=== PATIENT | male | born 1965 | race Caucasian/White ===

== ENCOUNTER 2023-03-03 10:50 | Inpatient (IN) | payer OTHER ==
[2023-03-03] VITALS (12 sets, daily range): BP systolic 117–140; BP diastolic 67–97; PULSE 64–71; RESP 18; TEMP 98.4
[~2023-03-03] VITALS: Ht 167.6 cm; Wt 86.1 kg
[~2023-03-03 10:50] MED LIST: ASPI-1450 PO; ASPIRIN 81 MG CHEWABLE TABLET PO ONE; ATOR40TA28 PO; CLOP75TA60 PO; DIAZEPAM 5 MG TABLET PO ONE; DiphenhydrAMINE HCL 50 MG CAPSULE PO ONE; ERGO500054 PO; LOSA-382 PO; RIFA300C36 PO; SODIUM CHLORIDE 0.9% 1,000 ML IV SCH; SODIUM CHLORIDE 0.9% 1,000 ML ONE
[2023-03-03] MEDS ORDERED: DIAZEPAM 5 MG TABLET ONE (11:50)
[2023-03-03] MEDS ORDERED: DiphenhydrAMINE HCL 50 MG CAPSULE ONE (11:50)
[2023-03-03 12:21] LABS: GLUCOMETER DEV NAME(LOC) SDS.; GLUCOSE,POINT OF CARE 75 MG/DL (70-110)
[2023-03-03] MEDS ORDERED: IOHEXOL 300 MG/ML 100 ML VIAL ONE (12:39)
[2023-03-03] MEDS ORDERED: LIDOCAINE/PF 1% 30 ML VIAL ONE (12:39)
[2023-03-03] MEDS ORDERED: HEPARIN SODIUM 1000 UNITS/NS 1,000 ML ONE (12:39)
[2023-03-03] MEDS ORDERED: SODIUM BICARBONATE 50 MEQ/50 ML VIAL ONE (12:39)
[2023-03-03] MEDS ORDERED: MIDAZOLAM HCL 2 MG/2 ML VIAL ONE ×2 (13:15→13:43)
[2023-03-03] MEDS ORDERED: FentaNYL CITRATE PF 100 MCG/2 ML VIAL ONE ×2 (13:15→13:43)
[2023-03-03] MEDS ORDERED: LIDOCAINE 1% 30 ML/SOD BICARB 8.4% 4 ML SQ ONE (13:45)
[2023-03-03] MEDS ORDERED: MIDAZOLAM HCL 2 MG/2 ML VIAL IVP ONE ×2 (13:45)
[2023-03-03] MEDS ORDERED: HEPARIN SODIUM 1000 UNITS/NS 1,000 ML IARTER ONE (13:45)
[2023-03-03] MEDS ORDERED: IOHEXOL 300 MG/ML 100 ML VIAL ICOR ONE (13:45)
[2023-03-03] MEDS ORDERED: FentaNYL CITRATE PF 100 MCG/2 ML VIAL IVP ONE ×2 (13:45)
[2023-03-03 21:51] LABS: GLUCOMETER DEV NAME(LOC) 5N.1C; GLUCOSE,POINT OF CARE 98 MG/DL (70-110)
[2023-03-04 00:30] VITALS: BP 125/80; PULSE 68; RESP 18; TEMP 97.6
[2023-03-04 03:59] VITALS: BP 120/83; PULSE 68; RESP 18; TEMP 98.2
[2023-03-04 09:00] VITALS: BP 153/90; PULSE 77; RESP 18; TEMP 98
[2023-03-04 10:44] VITALS: BP 145/91; PULSE 78
[2023-03-04] MEDS ORDERED: LOSARTAN POTASSIUM 50 MG TABLET PO SCH (12:30)
[2023-03-04] MEDS ORDERED: ATORVASTATIN CALCIUM 40 MG TABLET PO SCH (12:30)
[2023-03-04] MEDS ORDERED: ASPIRIN 81 MG CHEWABLE TABLET PO SCH (12:30)
[2023-03-04] MEDS ORDERED: CLOPIDOGREL BISULFATE 75 MG TABLET PO SCH (12:30)
[2023-03-05] MEDS ORDERED: METO25 PO (19:52)
[2023-03-11] MEDS ORDERED: ERGOCALCIFEROL (VIT D2) 50,000 UNITS [1,250 MCG] CAPSULE PO SCH (09:00)
== END 2023-03-04 12:54 | disposition home or self-care (01) | DRG 192 ==
LOC: 5S 10:50
PROVIDERS: ADMIT Internal Medicine Interventional Cardiology; ATTEND Internal Medicine Interventional Cardiology
PROC: 4A023N7 Measurement of Cardiac Sampling and Pressure, Left Heart, Percutaneous Approach (ICD-10-PCS; principal; 2023-03-03)
PROC: B211YZZ Fluoroscopy of Multiple Coronary Arteries using Other Contrast (ICD-10-PCS; 2023-03-03)
PROC: B215YZZ Fluoroscopy of Left Heart using Other Contrast (ICD-10-PCS; 2023-03-03)
PROC: B41F1ZZ Fluoroscopy of Right Lower Extremity Arteries using Low Osmolar Contrast (ICD-10-PCS; 2023-03-03)
PROC: B41C1ZZ Fluoroscopy of Pelvic Arteries using Low Osmolar Contrast (ICD-10-PCS; 2023-03-03)
DX: I42.0 Dilated cardiomyopathy (principal); I50.20 Unspecified systolic (congestive) heart failure; I11.0 Hypertensive heart disease with heart failure; Z79.899 Other long term (current) drug therapy
CPT/HCPCS: 82962; 93005; J1644; J2250; J3010; J3490; J7030; Q9967